=== PATIENT | female | born 1975 | race Hispanic/Latino ===

== ENCOUNTER 2018-09-02 13:04 | Emergency (ER) | payer BC ==
[2018-09-02 14:10] LABS: Absolute Lymphocytes (CBC) 1.9 K/uL (0.7-4.9); Absolute Monocytes 0.4 K/uL (0.1-1.3); Absolute Neutrophil 2.6 K/uL (1.8-8.0); Basophils % 0.5 % (0-1.3); Eosinophils % 1.5 % (0-4.4); Hematocrit 38.9 % (36.0-45.0); Lymphocytes % 37.7 % (15.3-44.8); MPV 9.7 fL (7.6-11.3); Monocytes % 8.8 % (3.3-12.3); RBC Red Blood Cell Count 4.55 M/uL (3.86-4.86)
[2018-09-02 14:20] LABS: Protime INR 1.07
[2018-09-02 14:36] LABS: ALT/SGPT 24 U/L (12-78); AST/SGOT 24 U/L (15-37); Albumin 3.8 g/dL (3.4-5.0); Alkaline Phosphatase 76 U/L (45-117); BUN Blood Urea Nitrogen 15 mg/dL (7-18); Bicarbonate 28 mmol/L (21-32); Bilirubin Direct 0.1 mg/dL (0-0.2); Bilirubin Total 0.4 mg/dL (0.2-1.0); Glucose Level 83 mg/dL (74-106); Magnesium 2.1 mg/dL (1.8-2.4); NT PRO-BNP 18 pg/mL (<125); Potassium 3.6 mmol/L (3.5-5.1); Protein, Total 7.1 g/dL (6.4-8.2); Sodium Level 141 mmol/L (136-145); Troponin (Emerg Dept Use Only) < 0.02 ng/mL (0.0-0.045)
--- NOTE | 2018-09-02 14:54 | RAD REPORT ---
EXAM DESCRIPTION: CT - Head Brain Wo Cont - 09/02/2018 2:28 pm CLINICAL HISTORY: Headache and syncope COMPARISON: None. TECHNIQUE: Computed axial tomography of the head was obtained. IV contrast was not requested. All CT scans are performed using dose optimization technique as appropriate and may include automated exposure control or mA/KV adjustment according to patient size. FINDINGS: An intracranial bleed is not seen . The ventricles are normal in caliber. No extra-axial fluid collection is noted. Fluid within the sinuses/ mastoids is not seen. IMPRESSION: No acute intracranial abnormality is seen. If patient's symptoms persist MRI of the bra in would be recommended.
--- NOTE | 2018-09-02 15:27 | RAD REPORT ---
EXAM DESCRIPTION: RAD - Chest Single View - 09/02/2018 3:02 pm CLINICAL HISTORY: Syncope, headache, shortness of breath COMPARISON: None. TECHNIQUE: AP portable chest image was obtained 1459 hours . FINDINGS: Lungs are clear. Heart and vasculature are normal. No measurable pleural effusion and no p neumothorax. No acute bony abnormality seen. No acute aortic findings suspected. IMPRESSION: No acute cardiopulmonary process.
[2018-09-02] MEDS ORDERED: NA CHLORIDE 0.9% 500 ML ONE (15:41)
[2018-09-02 15:45] LABS: Urine Blood NEGATIVE (NEG); Urine Glucose NEGATIVE (NEG); Urine Protein NEGATIVE (NEG); Urine Specific Gravity <1.005 (1.005-1.030); Urine pH 5.5 (5.0-7.0)
--- NOTE | 2018-09-02 15:48 | EDPHYS ---
Physician Documentation [facility] Name: Cinthia Choi Age: 43 yrs Sex: Female : 1975 Arrival Date: 09/02/2018 Time: 13:20 Bed 24 Private MD: ED Physician Sánchez Browning HPI: 09/02 15:46 This 43 yrs old Female presents to ER via EMS with complaints of syncope. jmm 15:46 The patient has experienced syncope. jmm 15:46 Onset: The symptoms/episode began/occurred acutely, just prior to arrival. Associated jmm injury: The patient did not suffer any apparent associated injury. Associated signs and symptoms: Pertinent positives: headache, Pertinent negatives: abdominal pain, chest pain, numbness, palpitations, shortness of breath, vomiting, weakness. This is a 43 year old female with a history of hlp, hypothyroidism that presents to the ED with complaints of a syncopal episode which occurred just prior to arrival. patient states she ate a small bowl of oatmeal in the morning, then went to go work out with no difficulty. Patient states she became weak and fainted while in the supermarket. EMS was notified. Patient states that she feels much better now. Patient denies chest pain, denies SOB, denies abdominal pain. . 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 - Social history:: Smoking status: Patient/guardian denies using tobacco. - Ebola Screening: : No symptoms or risks identified at this time. ROS: 15:46 Constitutional: Negative for fever, chills, and weight loss, Cardiovascular: Negative jmm for chest pain, palpitations, and edema, Respiratory: Negative for shortness of breath, cough, wheezing, and pleuritic chest pain, Abdomen/GI: Negative for abdominal pain, nausea, vomiting, diarrhea, and constipation. 15:46 Neuro: Positive for syncope. 15:46 All other systems are negative. Exam: 15:46 Constitutional: This is a well developed, well nourished patient who is awake, alert, jmm and in no acute distress. Head/Face: atraumatic. Eyes: EOMI, no conjunctival erythema appreciated ENT: Moist Mucus Membranes Neck: Trachea midline, Supple Chest/axilla: Normal chest wall appearance and motion. 15:46 Cardiovascular: Rate: normal, Rhythm: regular. 15:46 ECG was reviewed by the Attending Physician. 15:46 Respiratory: the patient does not display signs of respiratory distress, Respirations: normal, Breath sounds: are clear throughout. 15:46 Abdomen/GI: Inspection: abdomen appears normal, Bowel sounds: normal. 15:46 Back: ROM is normal. 15:46 Musculoskeletal/extremity: ROM: intact in all extremities. 15:46 Skin: Appearance: Color: normal in color. 15:46 Neuro: Orientation: is normal, Mentation: is normal, Memory: is normal. Vital Signs: 13:29 BP 107 / 57; Pulse 64; Resp 16 S; Temp 98.6; Pulse Ox 100% on R/A; Weight 62 kg; Height ca1 5 ft. 2 in. (157.48 cm); Pain 0/10; 13:45 BP 106 / 63; Pulse 55; Resp 16 S; Temp 98.6(O); Pulse Ox 100% on R/A; ca1 14:43 BP 140 / 67; Pulse 56; Resp 17 S; Temp 98.4(O); Pulse Ox 100% on R/A; ca1 15:32 BP 103 / 67; Pulse 52; Resp 17 S; Temp 98.2(O); Pulse Ox 97% on R/A; ca1 16:18 BP 108 / 67; Pulse 56; Resp 17 S; Temp 98(O); Pulse Ox 99% on R/A; ca1 13:29 Body Mass Index 25.00 (62.00 kg, 157.48 cm) ca1 MDM: 14:05 Patient medically screened. [facility] 15:46 Data reviewed: vital signs, nurses notes. Counseling: I had a detailed discussion with rudy the patient and/or guardian regarding: the historical points, exam findings, and any diagnostic results supporting the discharge/admit diagnosis, lab results, the need for outpatient follow up, to return to the emergency department if symptoms worsen or persist or if there are any questions or concerns that arise at home. 15:46 ED course: Patient is alert and non toxic in appearance in the ED. [facility] syncope rules would classify this patient as low risk. Patient is advised to follow up with cardio for further evaluation. Patient was otherwise given strict return precautions. patient understood and agrees with the plan of care. . 09/02 13:40 Order name: Basic Metabolic Panel; Complete Time: 14:37 [facility] 09/02 13:40 Order name: CBC with Diff; Complete Time: 14:37 [facility] 09/02 13:40 Order name: LFT's; Complete Time: 14:37 [facility] 09/02 13:40 Order name: Magnesium; Complete Time: 14:37 [facility] 09/02 13:40 Order name: NT PRO-BNP; Complete Time: 14:37 [facility] 09/02 13:40 Order name: PT-INR; Complete Time: 14:37 [facility] 09/02 13:40 Order name: Troponin (emerg Dept Use Only); Complete Time: 14:37 [facility] 09/02 13:40 Order name: XRAY Chest (1 view); Complete Time: 15:29 [facility] 09/02 13:40 Order name: EKG; Complete Time: 13:42 [facility] 09/02 13:40 Order name: Cardiac monitoring; Complete Time: 13:48 [facility] 09/02 13:49 Order name: Glucose, Ancillary Testing; Complete Time: 13:52 [facility] 09/02 14:06 Order name: CT Head Brain wo Cont; Complete Time: 14:55 [facility] 09/02 15:41 Order name: Urine Dipstick--Ancillary (enter results) 09/02 13:40 Order name: EKG - Nurse/Tech; Complete Time: 13:48 [facility] 09/02 13:40 Order name: IV Saline Lock; Complete Time: 14:13 [facility] 09/02 13:40 Order name: Labs collected and sent; Complete Time: 14:13 [facility] 09/02 13:40 Order name: O2 Per Protocol; Complete Time: 13:48 [facility] 09/02 13:40 Order name: O2 Sat Monitoring; Complete Time: 13:48 jmm EC:46 Rate is 58 beats/min. Rhythm is regular. QRS [place] is Normal. WI interval is normal. QRS jmm interval is normal. QT interval is normal. No Q waves. T waves are Normal. No ST changes noted. Administered Medications: 15:26 Drug: NS 0.9% 500 ml Route: IV; Rate: bolus; Site: right antecubital; ca1 16:18 Follow up: Response: No adverse reaction; IV Status: Completed infusion ca1 Point of Care Testing: Blood Glucose: 13:29 Blood Glucose: 112 mg/dL; ca1 Ranges: Critical Glucose Levels:Adult <50 mg/dl or >400 mg/dl <40 mg/dl or >180 mg/dl Disposition: 09/03 06:52 Co-signature as Attending Physician, Sánchez Browning MD I agree with the assessment and kdr plan of care. Disposition: 09/02/18 15:47 Discharged to Home. Impression: Syncope and collapse. - Condition is Stable. - Discharge Instructions: Syncope. - Medication Reconciliation Form, Thank You Letter, Antibiotic Education, Prescription Opioid Use form. - Follow up: Demian Esteban MD; When: 2 - 3 days; Reason: Recheck today's complaints, Continuance of care, Re-evaluation by your physician. Signatures: Dispatcher [employer] EDMS Sánchez Browning MD MD kdr Mickail, Joel, PA PA Megan Salas RN RN ca1 Corrections: (The following items were deleted from the chart) 09/02 16:00 13:29 Home Meds: Thyroid Meds; ca1 ca1 16:19 15:47 09/02/2018 15:47 Discharged to Home. Impression: Syncope and collapse. Condition ca1 is Stable. Forms are Medication Reconciliation Form, Thank You Letter, Antibiotic Education, Prescription Opioid Use. Follow up: Demian Esteban; When: 2 - 3 days; Reason: Recheck today's complaints, Continuance of care, Re-evaluation by your physician. [facility]
--- NOTE | 2018-09-02 15:48 | ER ---
Nurse's Notes [facility] Name: Cinthia Choi Age: 43 yrs Sex: Female : 1975 Arrival Date: 09/02/2018 Time: 13:20 Bed 24 Private MD: Diagnosis: Syncope and collapse Presentation: 09/02 13:21 Presenting complaint: EMS states: pt passed out at [employer] 30 minutes ago. Blood Sugar ca1 at 67, given 2 oral glucose, BS increased to 102. Complains of headache but pt has been having migraines of months now. Transition of care: patient was not received from another setting of care. Onset of symptoms was September 02, 2018. Risk Assessment: Do you want to hurt yourself or someone else? Patient reports no desire to harm self or others. Initial Sepsis Screen: Does the patient meet any 2 criteria? No. Patient's initial sepsis screen is negative. Does the patient have a suspected source of infection? No. Patient's initial sepsis screen is negative. Care prior to arrival: Medication(s) given: Oral glucose Glucose check: 67. 13:21 Method Of Arrival: EMS: [facility] ca1 13:21 Acuity: LUDIN 3 ca1 Triage Assessment: 13:29 General: Appears in no apparent distress. comfortable, Behavior is calm, cooperative, ca1 appropriate for age. General: Reports Pt reports of feeling weak prior to the incident. Pt reports of weakness and LOC, but denies any fall. Somebody was able to catch her before she fell. Pain: Denies pain. 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 - Social history:: Smoking status: Patient/guardian denies using tobacco. - Ebola Screening: : No symptoms or risks identified at this time. Screenin:30 Abuse screen: Denies threats or abuse. Denies injuries from another. Nutritional ca1 screening: No deficits noted. Tuberculosis screening: No symptoms or risk factors identified. Fall Risk None identified. Assessment: 13:30 General: Appears in no apparent distress. comfortable, Behavior is calm, cooperative, ca1 appropriate for age. Pain: Denies pain. Neuro: Level of Consciousness is awake, alert, obeys commands, Oriented to person, place, time, situation, Manager Gas are equal bilaterally Moves all extremities. Full function Gait is steady, Speech is normal, Facial symmetry appears normal, Pupils are PERRLA. Cardiovascular: Heart tones S1 S2 present Capillary refill < 3 seconds Patient's skin is warm and dry. Rhythm is sinus bradycardia. Respiratory: Airway is patent Respiratory effort is even, unlabored, Respiratory pattern is regular, symmetrical, Breath sounds are clear bilaterally. GI: Abdomen is flat, non-distended, Bowel sounds present X 4 quads. Abd is soft and non tender X 4 quads. : No deficits noted. No signs and/or symptoms were reported regarding the genitourinary system. EENT: No deficits noted. No signs and/or symptoms were reported regarding the EENT system. Derm: Skin is intact, is healthy with good turgor, Skin is pink, warm \T\ dry. Musculoskeletal: Circulation, motion, and sensation intact. Capillary refill < 3 seconds. 14:20 Reassessment: Patient appears in no apparent distress at this time. Patient and/or ca1 family updated on plan of care and expected duration. Pain level reassessed. Patient is alert, oriented x 3, equal unlabored respirations, skin warm/dry/pink. 15:32 Reassessment: Patient appears in no apparent distress at this time. Patient and/or ca1 family updated on plan of care and expected duration. Pain level reassessed. Patient is alert, oriented x 3, equal unlabored respirations, skin warm/dry/pink. 15:57 Reassessment: IVF to complete before discharge. ca1 16:18 Reassessment: Patient appears in no apparent distress at this time. Patient is alert, ca1 oriented x 3, equal unlabored respirations, skin warm/dry/pink. Vital Signs: 13:29 BP 107 / 57; Pulse 64; Resp 16 S; Temp 98.6; Pulse Ox 100% on R/A; Weight 62 kg; Height ca1 5 ft. 2 in. (157.48 cm); Pain 0/10; 13:45 BP 106 / 63; Pulse 55; Resp 16 S; Temp 98.6(O); Pulse Ox 100% on R/A; ca1 14:43 BP 140 / 67; Pulse 56; Resp 17 S; Temp 98.4(O); Pulse Ox 100% on R/A; ca1 15:32 BP 103 / 67; Pulse 52; Resp 17 S; Temp 98.2(O); Pulse Ox 97% on R/A; ca1 16:18 BP 108 / 67; Pulse 56; Resp 17 S; Temp 98(O); Pulse Ox 99% on R/A; ca1 13:29 Body Mass Index 25.00 (62.00 kg, 157.48 cm) ca1 ED Course: 13:20 Patient arrived in ED. ca1 13:27 Triage completed. ca1 13:29 Arm band placed on right wrist. EKG completed in triage. Results shown to MD. ca1 13:30 Patient has correct armband on for positive identification. Placed in gown. Bed in low ca1 position. Call light in reach. Side rails up X 1. quality assurance monitor on. Pulse ox on. NIBP on. Warm blanket given. 13:31 EKG done, by machine tool technology instructor. reviewed by Sánchez Browning MD. at1 13:40 Genaro Frazier PA is PHCP. jmm 13:40 Sánchez Browning MD is Attending Physician. jmm 13:48 Megan Cole, RN is Primary Nurse. ca1 13:50 No provider procedures requiring assistance completed. Inserted saline lock: 20 gauge ca1 in right antecubital area, using aseptic technique. Blood collected. 14:29 CT completed. Patient tolerated procedure well. Patient moved to CT via wheelchair. jg6 Patient moved back from CT. 14:29 CT Head Brain wo Cont In Process Unspecified. EDMS 14:59 XRAY Chest (1 view) In Process Unspecified. EDMS 15:47 Demian Esteban MD is Referral Physician. jmm 16:19 IV discontinued, intact, bleeding controlled, No redness/swelling at site. Pressure ca1 dressing applied. Administered Medications: 15:26 Drug: NS 0.9% 500 ml Route: IV; Rate: bolus; Site: right antecubital; ca1 16:18 Follow up: Response: No adverse reaction; IV Status: Completed infusion ca1 Point of Care Testing: Blood Glucose: 13:29 Blood Glucose: 112 mg/dL; ca1 Ranges: Outcome: 15:47 Discharge ordered by MD. grant 16:19 Patient left the ED. ca1 Signatures: Dispatcher [employer] EDGenaro [place] PA PA jmm Gonzales, Amanda, rock cutter EKG Tat1 Kristy Cuevas jg6 Megan Cole, RN RN ca1 Corrections: (The following items were deleted from the chart) 14:14 13:29 Blood Glucose: Blood Glucose Oeaxlle=120 mg/dL. ca1 ca1 14:43 14:20 BP 98 / 72; Pulse 57bpm; Resp 17bpm; Spontaneous; Pulse Ox 100% RA; Temp 98.4F ca1 Oral; ca1 16:00 13:29 Home Meds: Thyroid Meds; ca1 ca1
--- NOTE | 2018-09-02 15:55 | EKG ---
Test Date: 2018-09-02 Test Time: 13:31:22 Roll Former: STONEY MEASUREMENT RESULTS: Intervals: Rate: 58 GA: 168 QRSD: 74 QT: 402 QTc: 394 [place]: P: 51 GA: 168 QRS: 67 T: 45 INTERPRETIVE STATEMENTS: Sinus bradycardia Otherwise normal ECG No previous ECG available for comparison Electronically Signed On 09-02-18 15:54:50 CDT by Demian Esteban
== END 2018-09-02 16:19 | disposition home or self-care (01) ==
LOC: ER 13:04
DX: R55 Syncope and collapse (principal); E78.00 Pure hypercholesterolemia, unspecified; E07.9 Disorder of thyroid, unspecified
CPT/HCPCS: 36415; 70450; 71045; 80048; 80076; 81003; 82962; 83735; 83880; 84484; 85025; 85610; 93005; 96360; 99285

== ENCOUNTER 2021-03-21 16:56 | Emergency (ER) | payer BC ==
[2021-03-21] MEDS ORDERED: LIDOCAINE 1% MPF 5 ML VIAL ONE (19:25)
--- NOTE | 2021-03-21 20:01 | ER ---
Nurse's Notes [facility] Name: Cinthia Choi Age: 45 yrs Sex: Female : 1975 Arrival Date: 03/21/2021 Time: 17:13 Bed 14 Private MD: Diagnosis: Foreign body in right ear-Resolved Presentation: 03/21 17:48 Chief complaint: Patient states: I was sleeping when I woke up and felt like something ld1 was in my right ear, I hear it moving around. It hurts really bad. Coronavirus screen: At this time, the client does not indicate any symptoms associated with coronavirus-19. Ebola Screen: No symptoms or risks identified at this time. Initial Sepsis Screen: Does the patient meet any 2 criteria? No. Patient's initial sepsis screen is negative. Does the patient have a suspected source of infection? No. Patient's initial sepsis screen is negative. Risk Assessment: Do you want to hurt yourself or someone else? Patient reports no desire to harm self or others. Onset of symptoms was March 21, 2021. 17:48 Method Of Arrival: Ambulatory ld1 17:48 Acuity: LUDIN 4 ld1 Triage Assessment: 17:49 General: Appears in no apparent distress. comfortable, Behavior is calm, cooperative, ld1 appropriate for age. Pain: Complains of pain in right ear Pain does not radiate. Pain currently is 5 out of 10 on a pain scale. Quality of pain is described as throbbing. EENT: No signs and/or symptoms were reported regarding the EENT system. Neuro: Level of Consciousness is awake, alert, obeys commands, Oriented to person, place, time, situation. Cardiovascular: Capillary refill < 3 seconds Patient's skin is warm and dry. Respiratory: Airway is patent Respiratory effort is even, unlabored, Respiratory pattern is regular, symmetrical. GI: Abdomen is flat, non-distended. : No signs and/or symptoms were reported regarding the genitourinary system. Derm: No signs and/or symptoms reported regarding the dermatologic system. Musculoskeletal: No signs and/or symptoms reported regarding the musculoskeletal system. 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 - Social history:: Smoking status: Patient denies any tobacco usage or history of. Patient/guardian denies using alcohol. Screenin:11 Abuse screen: Denies threats or abuse. Denies injuries from another. Nutritional ld1 screening: No deficits noted. Tuberculosis screening: No symptoms or risk factors identified. Fall Risk None identified. Vital Signs: 17:48 BP 130 / 74; Pulse 61; Resp 18; Temp 98.6(O); Pulse Ox 100% on R/A; Weight 55.79 kg; ld1 Height 5 ft. 2 in. (157.48 cm); Pain 5/10; 17:48 Body Mass Index 22.50 (55.79 kg, 157.48 cm) ld1 ED Course: 17:13 Patient arrived in ED. ds1 17:49 Triage completed. ld1 17:49 Arm band placed on left wrist. ld1 18:55 Lore Borrego, NOMAN is Primary Nurse. sm5 19:18 Sánchez Browning MD is Attending Physician. kdr 20:00 Myrtle Tyson MD is Referral Physician. kdr 20:11 No provider procedures requiring assistance completed. Patient did not have IV access ld1 during this emergency room visit. 20:12 Patient has correct armband on for positive identification. Bed in low position. Call ld1 light in reach. Side rails up X2. Pulse ox on. NIBP on. Door closed. Noise minimized. Warm blanket given. Administered Medications: No medications were administered Outcome: 20:00 Discharge ordered by . kdr 20:11 Discharged to home ambulatory. ld1 20:11 Condition: stable 20:11 Discharge instructions given to patient, Instructed on discharge instructions, follow up and referral plans. Demonstrated understanding of instructions, follow-up care. 20:12 Patient left the ED. ld1 Signatures: Sánchez Browning MD MD kdr Sanford, Demi ds1 Yesenia Johnson RN RN ld1 Lore Borrego, NOMAN RN 5
--- NOTE | 2021-03-21 20:01 | EDPHYS ---
Physician Documentation [facility] Name: Cinthia Choi Age: 45 yrs Sex: Female : 1975 Arrival Date: 03/21/2021 Time: 17:13 Bed 14 Private MD: ED Physician Sánchez Browning HPI: 03/21 20:01 This 45 yrs old Black Female presents to ER via Ambulatory with complaints of Bug In kdr Ear. 20:01 The patient presents with a foreign body sensation, presumably from an insect. The kdr complaints affect the right ear. Onset: The symptoms/episode began/occurred this morning. Modifying factors: The symptoms are alleviated by nothing, the symptoms are aggravated by nothing. Associated signs and symptoms: The patient has no apparent associated signs or symptoms. 20:09 Severity of symptoms: At their worst the symptoms were very mild in the emergency kdr department the symptoms are unchanged. The patient has not experienced similar symptoms in the past. The patient has not recently seen a physician. She states that when she woke this morning she felt what she thought was a bug around her ear which she immediately swatted. She felt however that the bug had entered her ear canal. Through the course of the day she had tried to resolve but had subsequently put some oil in her ear but fell she still had foreign body possibly a bug in her ear. She denies any other associated signs or symptoms otherwise stable and without other complaints. 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 - Social history:: Smoking status: Patient denies any tobacco usage or history of. Patient/guardian denies using alcohol. ROS: 20:09 Constitutional: Negative for fever, chills, and weight loss, Eyes: Negative for injury, kdr pain, redness, and discharge, Neck: Negative for injury, pain, and swelling, Cardiovascular: Negative for chest pain, palpitations, and edema, Respiratory: Negative for shortness of breath, cough, wheezing, and pleuritic chest pain, Abdomen/GI: Negative for abdominal pain, nausea, vomiting, diarrhea, and constipation. 20:09 ENT: Positive for ear pain, foreign body sensation. Exam: 20:09 Constitutional: This is a well developed, well nourished patient who is awake, alert, kdr and in no acute distress. Head/Face: Normocephalic, atraumatic. Eyes: Pupils equal round and reactive to light, extra-ocular motions intact. Lids and lashes normal. Conjunctiva and sclera are non-icteric and not injected. Cornea within normal limits. Periorbital areas with no swelling, redness, or edema. Neck: Trachea midline, no thyromegaly or masses palpated, and no cervical lymphadenopathy. Supple, full range of motion without nuchal rigidity, or vertebral point tenderness. No Meningismus. 20:09 ENT: External ear(s): are unremarkable, Ear canal(s): There is oil within the ear canal from installation earlier by the patient. There may be some bug parts visible but given the amount of oil in the canal it is not clear, Post flushing by the nursing staff, there was no obvious foreign body in the ear including bugs. The ear canal otherwise looks fine as well as the tympanic membrane on the right ear. Vital Signs: 17:48 BP 130 / 74; Pulse 61; Resp 18; Temp 98.6(O); Pulse Ox 100% on R/A; Weight 55.79 kg; ld1 Height 5 ft. 2 in. (157.48 cm); Pain 5/10; 17:48 Body Mass Index 22.50 (55.79 kg, 157.48 cm) ld1 MDM: 20:00 Patient medically screened. kdr 20:09 Data reviewed: vital signs, nurses notes. Counseling: I had a detailed discussion with kdr the patient and/or guardian regarding: the historical points, exam findings, and any diagnostic results supporting the discharge/admit diagnosis, the need for outpatient follow up. 03/21 19:29 Order name: Carlos A. Order: Irrigate ear ; Complete Time: 19:40 kdr Administered Medications: No medications were administered Disposition Summary: 03/21/21 20:00 Discharge Ordered Location: Home kdr Problem: new kdr Symptoms: are resolved kdr Condition: Stable kdr Diagnosis - Foreign body in right ear - Resolved kdr Followup: kdr - With: Myrtle Tyson MD - When: 2 - 3 days - Reason: If symptoms return, Further diagnostic work-up, Recheck today's complaints, Continuance of care, Re-evaluation by your physician Discharge Instructions: - Discharge Summary Sheet kdr - Ear Foreign Body, [id number] kdr Forms: - Medication Reconciliation Form kdr - Thank You Letter kdr Signatures: Sánhcez Browning MD MD kdr Yesenia Johnson RN RN ld1
[2021-03-21 20:19] VITALS: BP 130/74; TEMP 98.6; O2SAT 100
== END 2021-03-21 20:12 | disposition home or self-care (01) ==
LOC: ER 16:56
DX: T16.1XXA Foreign body in right ear, initial encounter (principal); E07.9 Disorder of thyroid, unspecified; E78.00 Pure hypercholesterolemia, unspecified
CPT/HCPCS: 99283